=== PATIENT | female | born 1940 | race Caucasian/White ===

== ENCOUNTER 2022-11-01 06:04 | Outpatient (CLI) | payer MEDICARE, BC, SELFPAY ==
--- NOTE | 2022-11-01 06:21 | CTR_ITS ---
PROCEDURE INFORMATION: Exam: CT Left Lower Extremity Without Contrast, Foot Exam date and time: 11/01/2022 6:29 AM Age: 82 years old Clinical indication: Condition or disease; Other: Diabetic ulcer; Additional info: Diabetic ulcer bottom of left foot TECHNIQUE: Imaging protocol: CT of the left lower extremity without contrast was performed. Exam focused on the foot. Radiation optimization: All CT scans at this facility use at least one of these dose optimization techniques: automated exposure control; mA and/or kV adjustment per patient size (includes targeted exams where dose is matched to clinical indication); or iterative reconstruction. REPORTING DATA: Count of CT and Cardiac NM exams in prior 12 months: This patient has received 0 known CTs and 0 known cardiac nuclear medicine studies in the 12 months prior to the current study. COMPARISON: No relevant prior studies available. RADIATION DOSE METRICS: Total DLP (mGy-cm): 163.42 FINDINGS: Bones/joints: Bones are demineralized. There is focal osteolytic, destructive cortical bone changes involving the distal head of the 5th metatarsal consistent with osteomyelitis.. There is mild subluxation of the 5th MTP joint with superior displacement of the 5th proximal phalanx in relation to the 5th metatarsal. There are claw deformities of the 2nd through 4th digits. Remaining osseous structures are intact. Soft tissues: There is a soft tissue defect with adjacent soft tissue thickening along the plantar aspect of the forefoot deep to the 5th MTP joint presumed represent site of patient's known ulceration. There are scattered vascular calcifications present. CT/CT foot LT wo con* [id number] IMPRESSION: Soft tissue ulceration base of the 5th MTP joint with bone changes distal head 5th metatarsal consistent with osteomyelitis. Superimposed subluxation of the 5th MTP joint.
== END 2022-11-01 06:05 | disposition home or self-care (01) ==
PROVIDERS: PCP Nurse Practitioner Family; Visit Provider Internal Medicine
DX: E11.621 Type 2 diabetes mellitus with foot ulcer (principal)
CPT/HCPCS: 73700

== ENCOUNTER → 2022-11-10 11:42 | Outpatient (BNVA) | payer MEDICARE, BC, SELFPAY | PROVIDERS: PCP Nurse Practitioner Family; Visit Provider Podiatrist Foot & Ankle Surgery | DX: I73.9 Peripheral vascular disease, unspecified (principal); L97.524 Non-pressure chronic ulcer of other part of left foot with necrosis of bone; G62.9 Polyneuropathy, unspecified | CPT/HCPCS: 11044; 73630; 99204 ==

== ENCOUNTER 2022-11-16 10:20 | Day surgery (SDC) | payer MEDICARE, BC, MEDICAID, SELFPAY ==
[2022-11-15 11:19] VITALS: BMI 26.0
[2022-11-16] VITALS (10 sets, daily range): BP systolic 160–197; BP diastolic 72–108; PULSE 63–80; RESP 12–20; TEMP 36.4–37.1; O2SAT 95–100
[2022-11-16 10:54] LABS: Glucose Point of Care 147 mg/dL (70-110)
--- NOTE | 2022-11-16 11:06 | ANES.PREANE2 ---
Pre-Anesthetic Assessment Height/Weight: Height 1.6 m Weight 66.678 kg Temp Pulse Resp BP Pulse Ox O2 Del Method 97.5 F L 80 20 H 191/108 98 Room Air 11/16/22 10:38 11/16/22 10:38 11/16/22 10:38 11/16/22 10:38 11/16/22 10:38 11/16/22 10:45 Preop Diagnosis: Osteomyelitis left foot Operation Date: 11/16/22 12:20 Proposed Procedures p Ray Resection(Left) - Humble Santana DPM Familial anesthetic complications: None Was Beta Sy taken within 24 hours: N/A Was Clonidine taken within 24 hours: N/A Last intake: Intake Last Liquid Date 11/15/22 Last Liquid Time 17:00 Last Solid Date 11/15/22 Last Solid Time 20:00 Social No alcohol and No tobacco Exam alert, oriented x 3, clear to auscultation bilaterally and regular rate & rhythm GI Gastroesophageal Reflux Disease Metabolic Diabetes Mellitus, Hyperlipidemia and Thyroid Disease Anesthetic Plan ASA status: 3 Anesthesia: MAC Risk of > 500 ml blood loss (7ml/kg in children): No Medications/Allergies Home Medications Medication Instructions Recorded Confirmed Last Taken Type amlodipine 2.5 mg tablet 2.5 mg PO DAILY 11/10/22 11/15/22 11/15/22 08:00 History atorvastatin 40 mg tablet 40 mg PO DAILY 11/10/22 11/15/22 11/14/22 20:00 History clopidogrel 75 mg tablet 75 mg PO DAILY 11/10/22 11/15/22 11/15/22 08:00 History collagenase clostridium histo. 250 250 g topical DAILY 11/10/22 11/15/22 11/15/22 10:00 History unit/gram topical ointment (Santyl) gabapentin 100 mg capsule 100 mg PO TID 11/10/22 11/15/22 11/15/22 08:00 History hydrocodone 5 mg-acetaminophen 325 1 tab PO QID 11/10/22 11/15/22 11/15/22 08:00 History mg tablet levothyroxine 125 mcg tablet 0.5 tab PO DAILY 11/10/22 11/15/22 11/15/22 06:00 History venlafaxine 75 mg tablet 75 mg PO DAILY 11/10/22 11/15/22 11/15/22 08:00 History omeprazole 20 mg tablet,delayed 20 mg PO DAILY 11/15/22 11/15/22 11/15/22 08:00 History release Allergies Allergy/AdvReac Type Severity Reaction Status Date / Time Iodinated Contrast Media Allergy Severe Unknown Verified 11/15/22 11:10 iodine Allergy Severe Unknown Verified 11/15/22 11:10 Penicillins Allergy Intermediate ALGY-Hives Verified 11/15/22 11:10 Data Anesthesia Cardiac Studies: No Data to Display
--- NOTE | 2022-11-16 11:11 | W.PM.OPSUD ---
Surgery/Procedure H&P Update DATE OF PROCEDURE: November 16, 2022 DATE H&P PERFORMED: 11/10/22 CHANGES TO PREVIOUS DOCUMENTATION: none PREOP DIAGNOSIS: Osteomyelitis left foot PLANNED PROCEDURE: Operation Date: 11/16/22 12:20 Proposed Procedures p Ray Resection(Left) - Humble Santana DPM
--- NOTE | 2022-11-16 11:12 | P.OP_ITS ---
Operative Report Date of procedure: November 16, 2022 Pre-op diagnosis: Osteomyelitis left foot Post-op diagnosis: Osteomyelitis left foot Procedure done: Incision and debridement down to bone cortex left foot. CPT code 65146 Implants: 4 nylon Specimens removed/disposition: Bone from fifth metatarsal left foot sent to microbiology for Gram stain, culture and sensitivity Surgeon: Humble Santana D.P.M. Sleeve Turner: Delores Estimated blood loss: 5 10 Findings: Devitalized bone left fifth metatarsal Brief History: 82-year-old female has DPOA and guardianship in place.? Kita Nogueira is her legal guardian, she lives in [place]. Patient resides in a skilled nursing in [place] has developed a wound Sub fifth metatarsal head left foot with osteomyelitis confirmed on CT scan as well as x-ray, shows osteolysis of the fifth metatarsal head, clinically she has a wound Sub fifth metatarsal head that probes directly to bone. I discussed with her caregiver as well as called her guardian Kita Nogueira and discussed clinical and x-ray and CT scan findings indicative of osteomyelitis.? Discussed infection control with a combination of surgical and medical management.? Recommended surgical debridement down to and including bone of devitalized tissue left foot this may require partial ray resection pending intraoperative findings along with 6 weeks of antibiotic therapy and continuation of wound care and efforts to heal her wound.? They would like to proceed at next available opportunity this can be done outpatient.? I reviewed at length with the patient, the risks, potential complications, benefits, alternatives, expectations, and typical outcomes associated with the surgery. The risks and potential complications were explained in detail, including but not limited to infection, wound dehiscence or soft tissue complications, bleeding and hematoma, chronic edema, neuritis or nerve damage producing numbness or chronic pain, CRPS, failure to relieve pain or worsening pain, thick / painful / unsightly scar, limited motion / stiffness, malposition, delayed union, malunion, or nonunion, fracture, reaction to implants, anesthetic complications, venous thromboembolism, and deformity recurrence.? I discussed the notion of no regrets with the patient as it pertains to complications and outcomes. The patient seemed to understand the nature of the proposed care and required convalescence. They asked appropriate questions, answered to their satisfaction. They are aware no guarantees can be made as to a satisfactory outcome and they understand there may be other possible unforeseen complications or outcomes not listed here that will be treated accordingly if they arise. There were no written or implied guarantees given to the patient. They gave informed consent to proceed. Procedure: Under mild sedation the patient was brought to the operating room and remained on the gurney in supine position. A timeout was performed. Anesthesia was then administered by the anesthesia service. Local anesthesia injected by myself consisting of one-to-one mixture 1% lidocaine and 0.5% Marcaine plain in a reverse Hess block fashion to the left foot. Well-padded pneumatic tourniquet was applied to the left ankle. The left lower extremity was then scrubbed, prepped and draped utilizing normal aseptic technique. No Esmarch bandage was utilized due to underlying infection. Attention was directed to the dorsal lateral aspect of the left fifth ray where a linear longitudinal incision is made at the level of the fifth metatarsal head coursing proximally stopping mid shaft of the diaphysis. Of note there is a plantar wound Sub fifth metatarsal head probed directly to bone, was able to visualize the plantar aspect of the articular surface of the fifth metatarsal head. The dorsal incision was made directly full-thickness down to bone. Incision and debridement was performed down to and including bone cortex of the fifth metatarsal. Devitalized bone was appreciated this was most significant at the metaphyseal flare in the head of the left fifth metatarsal. This will be sent to microbiology for Gram stain, culture and sensitivity to help guide antibiotic therapies. The incision was flushed with copious amounts of sterile saline solution. The left fifth metatarsal was debrided of all devitalized bone and a beveled osteotomy was performed of the diaphysis utilizing a sagittal saw. All rough edges smoothed with a hand rasp. Further irrigation was performed with copious amounts of sterile solution. The incision was then closed utilizing 4-0 nylon. The incision was dressed with Adaptic, sterile 4 x 4's, Kerlix and Timbo wrap. Tourniquet was deflated and a prompt hyperemic response was noted to the distal digits of the left foot. Of note with direct visualization intraoperatively the base of the proximal phalanx of the fifth toe appeared to be viable with bright white cartilage without obvious signs of nec rosis. This was left intact. A postop shoe was applied to the left foot. Patient was transferred to the PACU with vital signs stable and vascular status intact. Following a period of postoperative monitoring she will be discharged back to her skilled nursing. We will continue antibiotic therapy as currently administered via PICC line until bone culture yield further information. We will rely on clinical evaluation, serial x-rays and inflammatory markers via lab work to determine when PICC line will be discontinued.
--- NOTE | 2022-11-16 12:21 | PC.NURSE ---
Pt arrived to PACU, awake, A&Ox3, pt denies any pain or nausea at this time. Dressing to left foot C/D/I, left toes p/w/d, cap refill < 3 seconds, FOB elevated.
[2022-11-16] MEDS: labetalol 5 mg/mL SDV 20mL 10 MG IVP (12:35)
--- NOTE | 2022-11-16 17:27 | ANE.PACU2 ---
Inpatient post-anesthesia follow up: Airway intact: Yes Vital signs: Temperature 98.7 F Pulse Rate 70 Respiratory Rate 16 Blood Pressure 177/89 Pulse Oximetry 98 Oxygen Delivery Me thod Room Air Oxygen Flow Rate 6 Fraction of Inspir ed Oxygen Hydration adequate: Yes Nausea and vomiting: No Pain level: 1 Mental status: Baseline
== END 2022-11-16 13:26 | disposition home or self-care (01) ==
PROVIDERS: PCP Nurse Practitioner Family; Visit Provider Podiatrist Foot & Ankle Surgery
PROC: (CPT 28810; principal; 2022-11-16 12:00)
DX: E11.621 Type 2 diabetes mellitus with foot ulcer (principal); L97.524 Non-pressure chronic ulcer of other part of left foot with necrosis of bone; E78.5 Hyperlipidemia, unspecified; E03.9 Hypothyroidism, unspecified; Z79.02 Long term (current) use of antithrombotics/antiplatelets; Z79.891 Long term (current) use of opiate analgesic; E11.42 Type 2 diabetes mellitus with diabetic polyneuropathy; E11.51 Type 2 diabetes mellitus with diabetic peripheral angiopathy without gangrene
CPT/HCPCS: 28005; 36416; 82962; 87070; 87176; 87205; J2704; J3490

== ENCOUNTER → 2022-11-23 12:42 | Outpatient (BNVA) | payer MEDICARE, BC, MEDICAID, SELFPAY | PROVIDERS: PCP Nurse Practitioner Family; Visit Provider Podiatrist Foot & Ankle Surgery | DX: Z98.890 Other specified postprocedural states (principal); I73.9 Peripheral vascular disease, unspecified; L97.524 Non-pressure chronic ulcer of other part of left foot with necrosis of bone; G62.9 Polyneuropathy, unspecified | CPT/HCPCS: 11042; 99024 ==

== ENCOUNTER → 2022-12-21 13:48 | Outpatient (BNVA) | payer MEDICARE, BC, MEDICAID, SELFPAY | PROVIDERS: PCP Nurse Practitioner Family; Visit Provider Podiatrist Foot & Ankle Surgery | DX: E11.621 Type 2 diabetes mellitus with foot ulcer (principal); L97.524 Non-pressure chronic ulcer of other part of left foot with necrosis of bone; I73.9 Peripheral vascular disease, unspecified; G62.89 Other specified polyneuropathies; E11.42 Type 2 diabetes mellitus with diabetic polyneuropathy | CPT/HCPCS: 99214 ==

== ENCOUNTER → 2023-03-13 09:11 | Outpatient (BNVA) | payer MEDICARE, BC, MEDICAID, SELFPAY | PROVIDERS: PCP Nurse Practitioner Family; Visit Provider Podiatrist Foot & Ankle Surgery | DX: I73.9 Peripheral vascular disease, unspecified (principal); G62.89 Other specified polyneuropathies; E11.42 Type 2 diabetes mellitus with diabetic polyneuropathy; L60.3 Nail dystrophy | CPT/HCPCS: 11721 ==

== ENCOUNTER → 2023-06-12 09:47 | Outpatient (BNVA) | payer MEDICARE, BC, MEDICAID, SELFPAY | PROVIDERS: PCP Nurse Practitioner Family; Visit Provider Podiatrist Foot & Ankle Surgery | DX: I73.9 Peripheral vascular disease, unspecified (principal); G62.89 Other specified polyneuropathies; E11.42 Type 2 diabetes mellitus with diabetic polyneuropathy; L60.3 Nail dystrophy | CPT/HCPCS: 99213 ==